=== PATIENT | female | born 1990 | race Caucasian/White ===

== ENCOUNTER 2018-07-19 07:57 | Inpatient (IN) ==
[2018-07-19] MEDS ORDERED: OXYTOCIN 30 UNITS/500 ML BAG IV PRN ×3 (08:10→21:17)
[2018-07-19] MEDS ORDERED: miSOPROStol 25 MCG TAB PV ONE (08:29)
[2018-07-19 08:34] LABS: Hematocrit (blood only) 37.2 % (37-47); Hemoglobin 12.6 g/dL (12.0-16.0); Mean Corpuscular Volume 84.7 fL (80-100); Mean Platelet Volume 10.6 fL (7.4-10.4); Platelet Count 197 K/uL (130-400); RDW Coefficient of Variation 13.9 % (11.5-14.5); RDW Standard Deviation 42.9 fL (36.4-46.3); Red Blood Count 4.39 M/uL (4.2-5.4); White Blood Count 8.97 K/uL (4.8-10.8)
[2018-07-19] MEDS ORDERED: PENICILLIN G POTASSIUM 6 MU in DEXTROSE 5% 250 ML IV STA (08:36)
--- NOTE | 2018-07-19 08:37 | Obstetrical Progress Note ---
Date of Service July 19, 2018 Physical Exam Physical Exam: Admit Note 27 F P2002 at 39.2 weeks admitted for IOL at term for history of pre-eclampsia. Cervix is 1/50/-3/vertex/intact/posterior. FHt Cat 1. EFW 7-14. GBS is positive and will start antibiotic prophylaxis. Bedside ultrasound done to confirm vertex. Will start induction with Cytotec 25 mcg placed vaginally for cervical ripening. Results & Data Vital Signs (Past 12 Hours) Vital Signs Temp Pulse Resp BP 07/19/18 08:07 36.4 C L 90 18 141/90 H
[2018-07-19 08:43] LABS: Mean Corpuscular Hgb Conc 33.9 g/dL (32-36)
[2018-07-19] MEDS: LACTATED RINGER'S 1,000 ML IV PRN ×2 (08:55→17:04)
--- NOTE | 2018-07-19 09:28 | Obstetrical Progress Note ---
Date of Service July 19, 2018 Subjective Cytotec 25 mcg placed vaginally. FHt Cat 1. Results & Data Vital Signs (Past 12 Hours) Vital Signs Temp Pulse Resp BP 07/19/18 08:07 36.4 C L 90 18 141/90 H
[2018-07-19] MEDS: PENICILLIN G POTASSIUM 3 MU in DEXTROSE 5% 100 ML IV PRN ×2 (13:19→16:57)
--- NOTE | 2018-07-19 14:59 | Obstetrical Progress Note ---
Date of Service July 19, 2018 Physical Exam Genitourinary: OB Exam Abdomen: + vertex Manual OB Exam: + cervical dilation 3 cm, + cervical effacement 50% and + station high OB Exam Monitor Tracing: + category I will start Oxytocin to augment contractions Results & Data Vital Signs (Past 12 Hours) Vital Signs Temp Pulse Resp BP 07/19/18 12:19 36.8 C 77 18 133/84 07/19/18 11:03 36.8 C 78 18 127/89 07/19/18 08:07 36.4 C L 90 18 141/90 H
[2018-07-19] MEDS ORDERED: ePHEDrine sulfate 50 MG/ML AMP ONE (16:15)
[2018-07-19] MEDS ORDERED: fentaNYL citrate 100 MCG/2 ML VIAL ONE (16:15)
[2018-07-19] MEDS ORDERED: BUPIVACAINE 0.25% 30 ML VIAL ONE (16:15)
[2018-07-19] MEDS ORDERED: fentaNYL 2MCG/ML ROPIV 1.25MG/ML 100 ML BAG EPI ONE (16:16)
[2018-07-19] MEDS ORDERED: NALBUPHINE HCL INJ 10 MG/ML AMP IV PRN (17:18)
[2018-07-19] MEDS ORDERED: fentaNYL 2MCG/ML ROPIV 1.25MG/ML 100 ML BAG EPI PRN (17:18)
[2018-07-19] MEDS ORDERED: NALOXONE HCL 1 MG in SODIUM CHLORIDE 0.9% 1000ML 1,000 ML IV PRN (17:18)
[2018-07-19] MEDS ORDERED: NALOXONE HCL 0.4 MG/1 ML VIAL/CARP IV PRN (17:18)
[2018-07-19] MEDS ORDERED: DiphenhydrAMINE HCL 50 MG/ML VIAL IV PRN (17:18)
[2018-07-19] MEDS ORDERED: ePHEDrine sulfate 50 MG/ML AMP IV PRN (17:18)
--- NOTE | 2018-07-19 17:18 | Anesthesiology Consultation ---
Date of Service July 19, 2018 Assessment & Plan ASA [id number] Proposed Anesthesia Anesthesia Type: Labor Epidural History Height/Weight Height: 5 ft 4 in Weight: 82.554 kg Allergies Allergy/AdvReac Type Severity Reaction Status Date / Time No Known Allergies Allergy Verified 07/13/18 19:46 Medications Home Medications Medication Instructions Recorded Confirmed Last Taken Vitamin 1 tab PO DAILY 07/06/18 07/19/18 07/18/18 07:30 Active Medications Generic Name Dose Route Start Last Admin Trade Name Freq PRN Reason Stop Dose Admin Lactated Ringer's 1,000 mls @ 125 mls/hr 07/19/18 08:10 07/19/18 17:04 Lr IV 07/21/18 08:09 125 mls/hr .Q8H PRN Administration L&D Protocol Protocol Penicillin G Potassium 3 mu/ 106 mls @ 100 mls/hr 07/19/18 08:29 07/19/18 16: 57 Dextrose IV 07/29/18 08:28 100 mls/hr Q4H PRN Administration Give until delivery Oxytocin 30 units in 500 mls @ 1 mls/hr 07/19/18 14:57 07/19/18 15:27 Pitocin IV 07/21/18 14:56 0.06 units/hr .Q24H PRN 1 mls/hr Labor Induction/Augmentation Administration Protocol 0.06 UNITS/HR Past Medical History Medical History H/O wisdom tooth extraction (~09/21/07) Past Family History Family History Mother Hypertension Sister Hypertension Grandfather (Paternal) Congenital heart disease Grandfather (Maternal) Cancer Grandmother (Maternal) Cancer Grandmother (Paternal) Cancer Social History Smoking Status: Never smoker Hx Alcohol Use: Yes (when not ) Alcohol type: wine alcohol intake frequency: a few times a month Hx Substance Use: No substance use type: does not use Physical Exam Vital Signs Last Vital Signs Temp 36.9 C 07/19/18 17:12 Pulse 79 07/19/18 17:15 Resp 18 07/19/18 17:12 BP 136/88 07/19/18 17:12 Pulse Ox 99 07/19/18 17:15
--- NOTE | 2018-07-19 18:47 | Obstetrical Progress Note ---
Date of Service July 19, 2018 Physical Exam Genitourinary: Manual OB Exam: + cervical dilation 4 cm, + cervical effacement 70% and + station -2 OB Exam Monitor Tracing: + external FHT monitor used and + category I attempted to rupture membranes will continue induction Results & Data Vital Signs (Past 12 Hours) Vital Signs Temp Pulse Resp BP Pulse Ox 07/19/18 18:40 90 100 07/19/18 18:35 81 99 07/19/18 18:34 81 132/82 07/19/18 18:30 84 99 07/19/18 18:25 86 99 07/19/18 18:20 85 99 07/19/18 18:18 86 133/88 07/19/18 18:15 90 99 07/19/18 18:10 96 H 100 07/19/18 18:05 89 99 07/19/18 18:03 84 130/83 07/19/18 18:00 90 99 07/19/18 17:55 79 100 07/19/18 17:50 89 100 07/19/18 17:48 86 135/81 07/19/18 17:45 78 142/88 H 100 07/19/18 17:42 134 H 136/76 07/19/18 17:40 86 100 07/19/18 17:39 83 129/82 07/19/18 17:36 105 H 141/93 H 07/19/18 17:35 128 H 99 07/19/18 17:33 93 H 142/89 H 07/19/18 17:30 80 99 07/19/18 17:25 92 H 100 07/19/18 17:20 86 100 07/19/18 17:15 79 99 07/19/18 17:12 36.9 C 77 18 136/88 07/19/18 17:10 82 98 07/19/18 15:35 36.6 C 75 18 138/89 07/19/18 12:19 36.8 C 77 18 133/84 07/19/18 11:03 36.8 C 78 18 127/89 07/19/18 08:07 36.4 C L 90 18 141/90 H
[2018-07-19] MEDS ORDERED: BISACODYL 10 MG SUPP PR PRN (21:17)
[2018-07-19] MEDS ORDERED: ACETAMINOPHEN 325 MG TAB PO PRN (21:17)
[2018-07-19] MEDS ORDERED: SUPERCREAM 0.870% 15 GM JAR EXT PRN (21:17)
[2018-07-19] MEDS ORDERED: HYDROCORTISONE ACETATE 25 MG SUPP PR PRN (21:17)
[2018-07-19] MEDS ORDERED: DIPHTHERIA/TETANUS/PERTUSSIS 0.5 ML SYR/VIAL IM ONE (21:17)
[2018-07-19] MEDS ORDERED: BENZOCAINE 20% AER SPR 82.5 GM CAN EXT PRN (21:17)
--- NOTE | 2018-07-19 21:22 | Procedure Note ---
Vaginal Delivery Summary Date of Service July 19, 2018 Vaginal Delivery Summary Delivery note live male over intact perineum ROCIO with Apgars 8/9 weight pending. Cord blood obtained and placenta delivered spontaneously and intact. No tears. EBL 150 ml. Final sponge and instrument count are correct. Mom and baby stable.
[2018-07-20] MEDS: IBUPROFEN 600 MG TAB PO PRN ×2 (06:47→20:44)
[2018-07-20 07:17] LABS: Hematocrit (blood only) 36.7 % (37-47); Hemoglobin 12.3 g/dL (12.0-16.0); Mean Corpuscular Hgb Conc 33.5 g/dL (32-36); Mean Corpuscular Volume 85.5 fL (80-100); Mean Platelet Volume 10.6 fL (7.4-10.4); Platelet Count 211 K/uL (130-400); RDW Coefficient of Variation 14.2 % (11.5-14.5); RDW Standard Deviation 43.7 fL (36.4-46.3); Red Blood Count 4.29 M/uL (4.2-5.4); White Blood Count 11.73 K/uL (4.8-10.8)
--- NOTE | 2018-07-20 08:08 | Obstetrical Progress Note ---
Date of Service July 20, 2018 Subjective Patient is seen and examined. She feels well, no complaints. Ambulating without dizziness Voiding without difficulty Tolerating regular diet with out N&V Bleeding is minimal No fever/ chills/ CP/ SOB/ N&V/ Leg pain Breast feeding without problems Vital Signs Temp Pulse Pulse Resp BP BP BP 07/20/18 08:00 36.5 C 89 18 126/89 07/20/18 04:20 36.7 C 71 16 141/95 H 07/19/18 23:20 36.7 C 92 H 18 140/80 07/19/18 23:12 92 H 140/80 07/19/18 23:10 36.7 C 100 H 18 133/78 07/19/18 23:02 99 H 136/82 07/19/18 22:52 96 H 136/82 07/19/18 22:42 89 138/81 07/19/18 22:40 18 07/19/18 22:32 82 144/78 H 07/19/18 22:22 81 155/94 H 07/19/18 22:12 100 H 143/89 H 07/19/18 22:10 18 07/19/18 22:02 79 127/77 07/19/18 21:55 18 07/19/18 21:52 89 135/81 07/19/18 21:42 100 H 136/92 07/19/18 21:40 78 18 139/89 07/19/18 21:25 18 07/19/18 21:23 86 145/96 H 07/19/18 21:12 90 149/79 H 07/19/18 21:10 36.7 C 103 H 18 07/19/18 21:05 97 H 07/19/18 21:00 135 H 07/19/18 20:55 94 H 07/19/18 20:50 78 07/19/18 20:49 77 135/85 07/19/18 20:45 81 07/19/18 20:40 71 07/19/18 20:35 78 07/19/18 20:34 74 137/82 07/19/18 20:30 80 07/19/18 20:25 82 07/19/18 20:20 76 07/19/18 20:19 71 130/82 07/19/18 20:15 75 07/19/18 20:10 77 Pulse Ox 07/20/18 08:00 98 07/20/18 04:20 97 07/19/18 23:20 07/19/18 23:12 07/19/18 23:10 07/19/18 23:02 07/19/18 22:52 07/19/18 22:42 07/19/18 22:40 07/19/18 22:32 07/19/18 22:22 07/19/18 22:12 07/19/18 22:10 07/19/18 22:02 07/19/18 21:55 07/19/18 21:52 07/19/18 21:42 07/19/18 21:40 07/19/18 21:25 07/19/18 21:23 07/19/18 21:12 07/19/18 21:10 98 07/19/18 21:05 97 07/19/18 21:00 92 07/19/18 20:55 100 07/19/18 20:50 98 07/19/18 20:49 07/19/18 20:45 98 07/19/18 20:40 98 07/19/18 20:35 98 07/19/18 20:34 07/19/18 20:30 99 07/19/18 20:25 99 07/19/18 20:20 97 07/19/18 20:19 07/19/18 20:15 98 07/19/18 20:10 98 07/20/18 07/19/18 Range/Units 06:55 08:23 WBC 11.73 H 8.97 (4.8-10.8) K/uL RBC 4.29 4.39 (4.2-5.4) M/uL Hgb 12.3 12.6 (12.0-16.0) g/dL Hct 36.7 L 37.2 (37-47) % MCV 85.5 84.7 (80-100) fL MCH 28.7 28.7 (25-34) pg MCHC 33.5 33.9 (32-36) g/dL RDW Std Deviation 43.7 42.9 (36.4-46.3) fL RDW Coeff of Nancy 14.2 13.9 (11.5-14.5) % Plt Count 211 197 (130-400) K/uL MPV 10.6 H 10.6 H (7.4-10.4) fL PE: General: Alert, orientedx3, NAD Abd: soft, NT, fundus firm, below Umbilicus Perineum intact, Lochia rubra minimal Ext; NT, no edema AP: 27 yo s/p , ppd# 1 VSS Afebrile doing well Continue routine care All questions were answered D/C home tomorrow Results & Data Vital Signs (Past 12 Hours) Vital Signs Temp Pulse Pulse Resp BP BP BP 07/20/18 08:00 36.5 C 89 18 126/89 07/20/18 04:20 36.7 C 71 16 141/95 H 07/19/18 23:20 36.7 C 92 H 18 140/80 07/19/18 23:12 92 H 140/80 07/19/18 23:10 36.7 C 100 H 18 133/78 07/19/18 23:02 99 H 136/82 07/19/18 22:52 96 H 136/82 07/19/18 22:42 89 138/81 07/19/18 22:40 18 07/19/18 22:32 82 144/78 H 07/19/18 22:22 81 155/94 H 07/19/18 22:12 100 H 143/89 H 07/19/18 22:10 18 07/19/18 22:02 79 127/77 07/19/18 21:55 18 07/19/18 21:52 89 135/81 07/19/18 21:42 100 H 136/92 07/19/18 21:40 78 18 139/89 07/19/18 21:25 18 07/19/18 21:23 86 145/96 H 07/19/18 21:12 90 149/79 H 07/19/18 21:10 36.7 C 103 H 18 07/19/18 21:05 97 H 07/19/18 21:00 135 H 07/19/18 20:55 94 H 07/19/18 20:50 78 07/19/18 20:49 77 135/85 07/19/18 20:45 81 07/19/18 20:40 71 07/19/18 20:35 78 07/19/18 20:34 74 137/82 07/19/18 20:30 80 07/19/18 20:25 82 07/19/18 20:20 76 07/19/18 20:19 71 130/82 07/19/18 20:15 75 07/19/18 20:10 77 Pulse Ox 07/20/18 08:00 98 07/20/18 04:20 97 07/19/18 23:20 07/19/18 23:12 07/19/18 23:10 07/19/18 23:02 07/19/18 22:52 07/19/18 22:42 07/19/18 22:40 07/19/18 22:32 07/19/18 22:22 07/19/18 22:12 07/19/18 22:10 07/19/18 22:02 07/19/18 21:55 07/19/18 21:52 07/19/18 21:42 07/19/18 21:40 07/19/18 21:25 07/19/18 21:23 07/19/18 21:12 07/19/18 21:10 98 07/19/18 21:05 97 07/19/18 21:00 92 07/19/18 20:55 100 07/19/18 20:50 98 07/19/18 20:49 07/19/18 20:45 98 07/19/18 20:40 98 07/19/18 20:35 98 07/19/18 20:34 07/19/18 20:30 99 07/19/18 20:25 99 07/19/18 20:20 97 07/19/18 20:19 07/19/18 20:15 98 07/19/18 20:10 98
[2018-07-20 08:55] LABS: Albumin Level 2.1 gm/dl (3.4-5.0); BUN Creatinine Ratio 11.8 (10-20); Calcium 8.8 mg/dl (8.5-10.1); Creatinine Clr Calc Pharmacy 143.8 ml/min; Est GFR (African American) 142.8; Est GFR (Non-African American) 123.2; Potassium 3.7 mmol/L (3.5-5.1)
[2018-07-20 08:58] LABS: Albumin Globulin Ratio 0.6 (0.9-2); Bilirubin,Total 0.3 mg/dl (0.2-1); Globulin 3.7 gm/dl (2.5-4.0); Total Protein 5.8 gm/dl (6.4-8.2)
[2018-07-20] MEDS ORDERED: PRENATAL VITAMIN 1 TAB PO SCH (09:00)
--- NOTE | 2018-07-20 09:22 | Anesthesia Procedure Note ---
Date of Service July 20, 2018 Anesthesia Post Epidural Note Vital Signs Vital Signs: Temp Pulse Pulse Resp BP BP BP 07/20/18 08:00 36.5 C 89 18 126/89 07/20/18 04:20 36.7 C 71 16 141/95 H 07/19/18 23:20 36.7 C 92 H 18 140/80 07/19/18 23:12 92 H 140/80 07/19/18 23:10 36.7 C 100 H 18 133/78 07/19/18 23:02 99 H 136/82 07/19/18 22:52 96 H 136/82 07/19/18 22:42 89 138/81 07/19/18 22:40 18 07/19/18 22:32 82 144/78 H 07/19/18 22:22 81 155/94 H 07/19/18 22:12 100 H 143/89 H 07/19/18 22:10 18 07/19/18 22:02 79 127/77 07/19/18 21:55 18 07/19/18 21:52 89 135/81 07/19/18 21:42 100 H 136/92 07/19/18 21:40 78 18 139/89 07/19/18 21:25 18 07/19/18 21:23 86 145/96 H 07/19/18 21:12 90 149/79 H 07/19/18 21:10 36.7 C 103 H 18 07/19/18 21:05 97 H 07/19/18 21:00 135 H 07/19/18 20:55 94 H 07/19/18 20:50 78 07/19/18 20:49 77 135/85 07/19/18 20:45 81 07/19/18 20:40 71 07/19/18 20:35 78 07/19/18 20:34 74 137/82 07/19/18 20:30 80 07/19/18 20:25 82 07/19/18 20:20 76 07/19/18 20:19 71 130/82 07/19/18 20:15 75 07/19/18 20:10 77 07/19/18 20:05 81 07/19/18 20:04 77 133/86 07/19/18 20:00 79 07/19/18 19:55 77 07/19/18 19:50 85 07/19/18 19:48 85 136/88 07/19/18 19:45 79 07/19/18 19:40 80 07/19/18 19:35 83 07/19/18 19:34 82 132/88 07/19/18 19:30 82 07/19/18 19:25 85 07/19/18 19:20 36.7 C 85 18 07/19/18 19:19 75 132/91 07/19/18 19:15 80 07/19/18 19:10 78 07/19/18 19:05 84 07/19/18 19:03 85 141/90 H 07/19/18 19:00 89 07/19/18 18:55 93 H 07/19/18 18:50 74 07/19/18 18:48 90 130/86 07/19/18 18:45 93 H 07/19/18 18:40 90 07/19/18 18:35 81 07/19/18 18:34 81 132/82 07/19/18 18:30 84 07/19/18 18:25 86 07/19/18 18:20 85 07/19/18 18:18 86 133/88 07/19/18 18:15 90 07/19/18 18:10 96 H 07/19/18 18:05 89 07/19/18 18:03 84 130/83 07/19/18 18:00 90 07/19/18 17:55 79 07/19/18 17:50 89 07/19/18 17:48 86 135/81 07/19/18 17:45 78 142/88 H 07/19/18 17:42 134 H 136/76 07/19/18 17:40 86 07/19/18 17:39 83 129/82 07/19/18 17:36 105 H 141/93 H 07/19/18 17:35 128 H 07/19/18 17:33 93 H 142/89 H 07/19/18 17:30 80 07/19/18 17:25 92 H 07/19/18 17:20 86 07/19/18 17:15 79 07/19/18 17:12 36.9 C 77 18 136/88 07/19/18 17:10 82 07/19/18 15:35 36.6 C 75 18 138/89 07/19/18 12:19 36.8 C 77 18 133/84 07/19/18 11:03 36.8 C 78 18 127/89 Pulse Ox 07/20/18 08:00 98 07/20/18 04:20 97 07/19/18 23:20 07/19/18 23:12 07/19/18 23:10 07/19/18 23:02 07/19/18 22:52 07/19/18 22:42 07/19/18 22:40 07/19/18 22:32 07/19/18 22:22 07/19/18 22:12 07/19/18 22:10 07/19/18 22:02 07/19/18 21:55 07/19/18 21:52 07/19/18 21:42 07/19/18 21:40 07/19/18 21:25 07/19/18 21:23 07/19/18 21:12 07/19/18 21:10 98 07/19/18 21:05 97 07/19/18 21:00 92 07/19/18 20:55 100 07/19/18 20:50 98 07/19/18 20:49 07/19/18 20:45 98 07/19/18 20:40 98 07/19/18 20:35 98 07/19/18 20:34 07/19/18 20:30 99 07/19/18 20:25 99 07/19/18 20:20 97 07/19/18 20:19 07/19/18 20:15 98 07/19/18 20:10 98 07/19/18 20:05 98 07/19/18 20:04 07/19/18 20:00 98 07/19/18 19:55 98 07/19/18 19:50 98 07/19/18 19:48 07/19/18 19:45 98 07/19/18 19:40 98 07/19/18 19:35 98 07/19/18 19:34 07/19/18 19:30 98 07/19/18 19:25 98 07/19/18 19:20 99 07/19/18 19:19 07/19/18 19:15 98 07/19/18 19:10 99 07/19/18 19:05 99 07/19/18 19:03 07/19/18 19:00 99 07/19/18 18:55 99 07/19/18 18:50 99 07/19/18 18:48 07/19/18 18:45 99 07/19/18 18:40 100 07/19/18 18:35 99 07/19/18 18:34 07/19/18 18:30 99 07/19/18 18:25 99 07/19/18 18:20 99 07/19/18 18:18 07/19/18 18:15 99 07/19/18 18:10 100 07/19/18 18:05 99 07/19/18 18:03 07/19/18 18:00 99 07/19/18 17:55 100 07/19/18 17:50 100 07/19/18 17:48 07/19/18 17:45 100 07/19/18 17:42 07/19/18 17:40 100 07/19/18 17:39 07/19/18 17:36 07/19/18 17:35 99 07/19/18 17:33 07/19/18 17:30 99 07/19/18 17:25 100 07/19/18 17:20 100 07/19/18 17:15 99 07/19/18 17:12 07/19/18 17:10 98 07/19/18 15:35 07/19/18 12:19 07/19/18 11:03 Notes Mental Status: alert / awake / arousable Patient Amnestic to Procedure: No Nausea / Vomiting: adequately controlled Pain: adequately controlled Airway Patency, RR, SpO2: stable & adequate BP & HR: stable & adequate Hydration State: stable & adequate Neuraxial Anesthesia: was administered and sensory block resolved Anesthetic Complications: no major complications apparent and Pt Satisfied with anesthetic care Epidural: Removed without complications and With tip intact
[2018-07-20] MEDS: PRENATAL VITAMIN 1 TAB PO SCH (11:09)
[2018-07-20] MEDS: DOCUSATE SODIUM 100 MG CAP PO SCH ×2 (11:09→20:43)
[2018-07-20] MEDS ORDERED: BISACODYL 5 MG TABEC PO SCH (20:00)
[2018-07-21 07:05] LABS: Hematocrit (blood only) 34.1 % (37-47); Hemoglobin 11.3 g/dL (12.0-16.0)
[2018-07-21] MEDS: DOCUSATE SODIUM 100 MG CAP PO SCH (10:36)
[2018-07-21] MEDS: PRENATAL VITAMIN 1 TAB PO SCH (10:36)
[2018-07-21] MEDS: IBUPROFEN 600 MG TAB PO PRN (17:31)
== END 2018-07-21 17:35 | disposition home or self-care (01) | DRG 807 ==
LOC: 4S1 07:57 → 4S2 07-20 00:08